=== PATIENT | female | born 1975 | race Caucasian/White ===

== ENCOUNTER 2016-04-22 05:28 | Emergency (ER) | payer OTHER ==
--- NOTE | 2016-04-22 06:16 | ED ---
Skin/Abscess/FB HPI - General Stated complaint: Skin infection/Rash Time Seen by Provider: 04/22/16 06:00 Source: patient, RN notes reviewed Mode of arrival: ambulatory Limitations: no limitations - History of Present Illness Initial comments: Is a 40-year-old female who states she's had a rash that started about 2 weeks ago with lesions in her eyelashes now she has on her forehead fingers trunk and arms. She states is itchy no one else in her household has it. She relates it to playing with a dog. She brought in samples of what she believes to be small parasites she's taking out of her fingers. She was seen to be doing this with tweezers as I entered the room. MD complaint: rash - Related Data Previous Rx's Medication Instructions Recorded Permethrin 5% Cream [Elimite] 1 applic TOPICAL ONCE #2 cream..g. 04/22/16 hydrOXYzine HCL [Atarax] 25 mg PO TID PRN #20 tab 04/22/16 Allergies Allergy/AdvReac Type Severity Reaction Status Date / Time No Known Allergies Allergy Verified 04/22/16 05:35 Review of Systems ROS Statement: Those systems with pertinent positive or pertinent negative responses have been documented in the HPI. ROS Other: All systems not noted in ROS Statement are negative. Past Medical History Additional Past Medical History / Comment(s): Eros History of Any Multi-Drug Resistant Organisms: None Reported Additional Past Surgical History / Comment(s): bone marrow transplant, mediport , neck biopsy, Past Psychological History: No Psychological Hx Reported Smoking Status: Current every day smoker Past Alcohol Use History: None Reported Past Drug Use History: Heroin General Exam - General Exam Comments Initial Comments: Is a well-developed well-nourished awake alert oriented history female Limitations: no limitations General appearance: alert Head exam: Present: atraumatic, normocephalic, normal inspection, other ( Several lesions noted on the forehead seen in his scalp at this time) Eye exam: Present: normal appearance, PERRL, EOMI. Absent: scleral icterus, conjunctival injection, periorbital swelling ENT exam: Present: normal exam Neck exam: Present: normal inspection. Absent: tenderness, meningismus, lymphadenopathy Extremities exam: Present: full ROM, normal capillary refill, other ( Examination the fingers reveals dry skin around the nail beds. No injury dizziness lesions noted. Does have several other areas on the proximal hands however they're linear in nature.) Back exam: Present: full ROM. Absent: tenderness Neurological exam: Present: alert, oriented X3, CN II-XII intact Psychiatric exam: Present: anxious Skin exam: Present: warm, dry, other (Several areas of potentially could represent scabies were noted on the extremities.) Course Vital Signs 04/22/16 05:31 Temperature 97.4 F L Pulse Rate 111 H Respiratory 20 Rate Blood Pressure 136/96 O2 Sat by Pulse 97 Oximetry - Reevaluation(s) Reevaluation #1: 04/22/16 06:16 The patient did bring in samples in the last 2 of which she believes repair states to me that appears to be dry skin that she picked off her cuticles. Reevaluation #2: 04/22/16 06:18 Patient stated no one ulcer also has of that she does have a small child she'll be given instructions for what to look for Medical Decision Making - Medical Decision Making Patient will be placed on permethin and anti-itch medication. She is follow-up with her doctor and return when necessary Disposition Clinical Impression: Scabies, Contact dermatitis Disposition: HOME SELF-CARE Condition: Good Instructions: Contact Dermatitis (ED), Scabies (ED), Scabies in Children (ED) Prescriptions: Permethrin 5% Cream [Elimite] 1 applic TOPICAL ONCE #2 cream..g. hydrOXYzine HCL [Atarax] 25 mg PO TID PRN #20 tab PRN Reason: Itching
[2016-04-22 06:34] VITALS: BP 119/76; PULSE 88; RESP 18; TEMP 98
== END 2016-04-22 06:35 | disposition home or self-care (01) ==
LOC: EC 05:28
DX: B86 Scabies (principal); L25.9 Unspecified contact dermatitis, unspecified cause; F17.200 Nicotine dependence, unspecified, uncomplicated
CPT/HCPCS: 99282

== ENCOUNTER 2016-04-28 18:18 | Emergency (ER) | payer OTHER ==
[2016-04-28 18:23] VITALS: BP 139/72; PULSE 97; RESP 20; TEMP 97.7
[2016-04-28] MEDS ORDERED: MUPIROCIN CALCIUM 2% CREAM 15 GM TUBE TOPICAL SCH (19:00)
--- NOTE | 2016-04-28 19:08 | ED ---
Skin/Abscess/FB HPI - General Chief complaint: Skin/Abscess/Foreign Body Stated complaint: skin problems, sick Time Seen by Provider: 04/28/16 18:32 Source: patient, RN notes reviewed Mode of arrival: ambulatory Limitations: no limitations - History of Present Illness Initial comments: Patient is a 40-year-old female with chief complaint of itchiness to her skin. She was diagnosed with scabies approximately a week ago and completed 1 round of the permethrin cream. Patient reports that it's gotten worse. Patient reports that she saw a physician yesterday who did not believe that she had the bugs. She states that she feels them in her teeth, her genitals, and over her entire body. She reports that she did pick one up and has it in a jar. I did open the jar, and no evidence of any bug there. It appears to be a scab from patient's skin. Patient has been scratching her skin and there are multiple open sores. Patient denies any history of drug or psychiatric disorders. She denies fever, chills, nausea, vomiting, chest pain, shortness of breath, abdominal pain. - Related Data Previous Rx's Medication Instructions Recorded Permethrin 5% Cream [Elimite] 1 applic TOPICAL ONCE #2 cream..g. 04/22/16 hydrOXYzine HCL [Atarax] 25 mg PO TID PRN #20 tab 04/22/16 Mupirocin Calcium 2% Cream 1 applic TOPICAL TID #20 gm 04/28/16 [Bactroban 2% Cream] Allergies Allergy/AdvReac Type Severity Reaction Status Date / Time No Known Allergies Allergy Verified 04/28/16 18:23 Review of Systems ROS Statement: Those systems with pertinent positive or pertinent negative responses have been documented in the HPI. ROS Other: All systems not noted in ROS Statement are negative. Past Medical History Additional Past Medical History / Comment(s): Hogdkhermann History of Any Multi-Drug Resistant Organisms: None Reported Additional Past Surgical History / Comment(s): bone marrow transplant, mediport , neck biopsy, Past Psychological History: No Psychological Hx Reported Smoking Status: Current every day smoker Past Alcohol Use History: None Reported Past Drug Use History: Heroin General Exam - General Exam Comments Initial Comments: Patient is a unkempt 40 year old female. No acute distress. Limitations: no limitations General appearance: alert, in no apparent distress Head exam: Present: atraumatic, normocephalic, normal inspection Eye exam: Present: normal appearance, PERRL, EOMI. Absent: scleral icterus, conjunctival injection, periorbital swelling ENT exam: Present: normal exam, mucous membranes moist Neck exam: Present: normal inspection. Absent: tenderness, meningismus, lymphadenopathy Respiratory exam: Present: normal lung sounds bilaterally. Absent: respiratory distress, wheezes, rales, rhonchi, stridor Cardiovascular Exam: Present: regular rate, normal rhythm, normal heart sounds. Absent: systolic murmur, diastolic murmur, rubs, gallop, clicks GI/Abdominal exam: Present: soft, normal bowel sounds. Absent: distended, tenderness, guarding, rebound, rigid Extremities exam: Present: normal inspection, full ROM, normal capillary refill. Absent: tenderness, pedal edema, joint swelling, calf tenderness Back exam: Present: normal inspection Neurological exam: Present: alert, oriented X3, CN II-XII intact Psychiatric exam: Present: normal affect, normal mood Skin exam: Present: warm, dry, normal color. Absent: intact (picked open sores from back, abdomen, legs, arms, face and scalp. ), rash Course Vital Signs 04/28/16 18:21 Temperature 97.7 F Pulse Rate 97 Respiratory 20 Rate Blood Pressure 139/72 O2 Sat by Pulse 99 Oximetry Medical Decision Making - Medical Decision Making Patient is a 40-year-old female with chief complaint of itchiness to her skin. She was diagnosed with scabies approximately a week ago and completed 1 round of the permethrin cream. Patient reports that it's gotten worse. Patient reports that she saw a physician yesterday who did not believe that she had the bugs. She states that she feels them in her teeth, her genitals, and over her entire body. She reports that she did pick one up and has it in a jar. I did open the jar, and no evidence of any bug there. It appears to be a scab from patient's skin. Patient has multiple open sores from where she has been picking and scratching. She adamently denies psychiatric and drug use history. I discussed with the patient that there are no visible bugs, and that patient has no bug in her container to show me. She will be given bactroban cream to put over the sores. I also advised patient that she can repeat her permethirin treatment this week. Patient was diagnosed with scabies and completed a treatment. PAtient understnads treatment plan and will comply. Patient given a pcp. Disposition Clinical Impression: Rash Disposition: HOME SELF-CARE Condition: Good Instructions: Scabies (ED) Additional Instructions: Patient advised to repeat her permethrin treatment in one day. Patient also advised to apply the Bactroban ointment over her skin in the open areas. Follow -up with primary care provider. Return to the emergency department if any alarming signs or symptoms occur. Prescriptions: Mupirocin Calcium 2% Cream [Bactroban 2% Cream] 1 applic TOPICAL TID #20 gm Referrals: Carrie Patel MD [STAFF PHYSICIAN] - 1-2 days Time of Disposition: 19:08
[2016-04-28] MEDS ORDERED: MUPIROCIN CALCIUM 2% CREAM 15 GM TUBE TOPICAL STA (19:12)
== END 2016-04-28 19:20 | disposition home or self-care (01) ==
LOC: EC 18:18
DX: B86 Scabies (principal); F17.200 Nicotine dependence, unspecified, uncomplicated
CPT/HCPCS: 99282